=== PATIENT | male | born 1980 | race Asian ===

== ENCOUNTER 2018-11-29 06:36 | Day surgery (SDC) | payer OTHER ==
[~2018-11-29] VITALS: Ht 172.7 cm; Wt 64.0 kg
[~2018-11-29 06:36] MED LIST: OMEP20CA4 PO
[2018-11-29] MEDS ORDERED: PROPOFOL 200 MG/20 ML VIAL As Ordered ONE ×2 (07:02→07:05)
[2018-11-29] MEDS ORDERED: LIDOCAINE 2% INJ 100 MG/5 ML SDV (FOR ANES.) As Ordered ONE (07:02)
[2018-11-29] MEDS ORDERED: NS 1,000 ML IV ONE (08:00)
--- NOTE | 2018-11-29 08:17 | ROOR ---
Patient Name: In An Procedure Date: 11/29/2018 8:03 AM Date of : 1980 Age: 38 Room: [facility] Gender: Male Note Status: Finalized Procedure: Upper Endoscopy + Biopsies Indications: Heartburn, Failure to respond to medical treatment, Exclusion of Whittington's esophagus Providers: Mc Gagnon MD Referring MD: ANITA SIMMS MD Requesting Provider: Medicines: Monitored Anesthesia Care Complications: No immediate complications. Procedure: Pre-Anesthesia Assessment: - The heart rate, respiratory rate, oxygen saturations, blood pressure, adequacy of pulmonary ventilation, and response to care were monitored throughout the procedure. The Endoscope was introduced through the mouth, and advanced to the second part of duodenum. The upper GI endoscopy was accomplished without difficulty. The patient tolerated the procedure well. Findings: The Z-line was irregular and was found 42 cm from the incisors. Multiple biopsies were obtained with cold forceps for evaluation to rule out Whittington's Esophagus randomly at the gastroesophageal junction. A small hiatal hernia was present. No other significant abnormalities were identified in a careful examination of the stomach. The exam of the duodenum was otherwise normal. Impression: - Z-line irregular, 42 cm from the incisors. - Small hiatal hernia. - Multiple biopsies were obtained at the gastroesophageal junction. - The examination was otherwise normal. Recommendation: - Patient has a contact number available for emergencies. The signs and symptoms of potential delayed complications were discussed with the patient. Return to normal activities tomorrow. Written discharge instructions were provided to the patient. - High fiber diet. - Discharge patient to home. - Follow an antireflux regimen. - Continue present medications. - Await pathology results. - Telephone GI clinic for pathology results in 1 week. - Return to referring physician. - Repeat upper endoscopy for surveillance based on pathology results. - The findings and recommendations were discussed with the patient's family. Mc Gagnon MD Mc Gagnon MD 11/29/2018 8:17:25 AM Electronically signed by Mc Gagnon MD Number of Addenda: 0 Note Initiated On: 11/29/2018 8:03 AM Estimated Blood Loss: Estimated blood loss: none.
[2018-11-29 08:45] VITALS: BP 154/68
== END 2018-11-29 08:55 | disposition home or self-care (01) ==
LOC: M OPP 06:36
PROVIDERS: ATTEND Internal Medicine Gastroenterology
DX: K22.8 Other specified diseases of esophagus (principal); K44.9 Diaphragmatic hernia without obstruction or gangrene; R12 Heartburn